=== PATIENT | female | born 1990 | race African-American/Black ===

== ENCOUNTER 2018-11-23 02:40 | Inpatient (IN) | payer OTHER ==
[2018-11-23] MEDS ORDERED: OXYTOCIN 20 UNITS in 0.9% NS 20 UNIT/1,000 ML INFUS.BAG IV ONE ×2 (04:39→09:00)
[2018-11-23] MEDS ORDERED: SUCCINYLCHOLINE CHLORIDE 200 MG/10 ML VIAL ONE (04:54)
[2018-11-23] MEDS ORDERED: PROPOFOL 20 ML ONE (04:55)
[2018-11-23] MEDS ORDERED: ceFAZolin SODIUM 1 GM VIAL ONE (05:17)
[2018-11-23] MEDS ORDERED: ceFAZolin 2 GRAM PREMIX BAG IVPB ONE (05:17)
[2018-11-23] MEDS ORDERED: DEXAMETHASONE SOD PHOSPHATE 4 MG/1 ML VIAL ONE (05:20)
[2018-11-23 05:35] LABS: VENOUS PC02 42.8 mmHg (41-51); VENOUS PH 7.25 (7.31-7.41)
[2018-11-23 05:37] LABS: ARTERIAL BLD GAS O2 SATURATION 35.6 % (95-98); ARTERIAL BLOOD GAS BASE EXCESS -9.9 meq/l (-2-2); ARTERIAL BLOOD GAS PCO2 62.6 mmHg (35-45)
[2018-11-23 05:43] LABS: ARTERIAL BLOOD GAS PO2 22.1 mmHg (80-105); ARTERIAL BLOOD GAS pH 7.14 (7.35-7.45)
[2018-11-23] MEDS ORDERED: DEXAMETHASONE SOD PHOSPHATE 4 MG/1 ML VIAL IVPUSH PRN (05:45)
[2018-11-23] MEDS ORDERED: ONDANSETRON 4 MG/2 ML VIAL IVPUSH PRN ×2 (05:45→05:55)
[2018-11-23] MEDS ORDERED: morphine SULFATE/PF 30 MG/30 ML *PCA* DISP.SYRIN PCA SCH (05:45)
[2018-11-23] MEDS ORDERED: METHYLERGONOVINE MALEATE 0.2 MG/1 ML AMP IM PRN (05:46)
--- NOTE | 2018-11-23 05:50 | OP ---
Operative Note - Note: Operative Date: 11/23/18 Pre-Operative Diagnosis: NRFHT, 2 prior C/S, Labor Operation: Repeat Low Transverse Findings: VFI, JANIYA position. No nuchal. No meconium. Weight pending. Apgars 8/9. Surgeon: Katherine Correia Automatic Glove Former: Michel Young Anesthesia: General Estimated Blood Loss (mls): 800
[2018-11-23] MEDS ORDERED: OXYTOCIN 20 UNITS in 0.9% NS 20 UNIT/1,000 ML INFUS.BAG IV SCH (06:00)
--- NOTE | 2018-11-23 06:00 | HP ---
Past Medical History - Admission Chief Complaint: Uterine contractions History of Present Illness: 27yo @ 36.2wks by stated JANIE who presents with painful irregular contractions, LOF. +FM No VB. Preg c/b: PNC in [place]- last visit in August 2017, no records available. 2 prior C/S History Source: Patient Limitations to Obtaining History: No Limitations - Past Medical History ...: 3 ...Para: 2 ...Term: 2 ...: 0 Heme/Onc: No: Anemia, B12 Deficiency, Bleeding Disorder, Cancer, Current Chemotherapy, Current Radiation Therapy, Hemochromatosis, Hypercoaguable State, Myeloproliferative Synd, Sickle Cell Disease, Sickle Cell Trait, Thrombocytopenia, Other Infectious Disease: No: AIDS, C-Diff, Herpes Zoster, HIV, MRSA, STD's, Tuberculosis, VREF, Other - Past Surgical History Past Surgical History: Yes: Hx Myomectomy: No Hx Transabdominal Cerclage: No - Smoking History Have you smoked in the past 12 months: No - Alcohol/Substance Use Hx Alcohol Use: No History of Substance Use: reports: None - Social History Usual Living Arrangement: Yes: Alone ADL: Independent History of Recent Travel: No Home Medications - Allergies Allergies/Adverse Reactions: Allergies Allergy/AdvReac Type Severity Reaction Status Date / Time No Known Allergies Allergy Verified 11/23/18 05:51 Physical Exam - Maternity Constitutional: Yes: Well Nourished Eyes: Yes: WNL HENT: Yes: WNL Neck: Yes: WNL - Abdominal Exam/OB Number of Fetuses: Single Presentation: Vertex Contractions: Yes Regularity: Irregular Intensity: Mod/Strong Monitor Mode: External Heart Rate Location: [facility] Category: II Accelerations: Uniform Decelerations: Variable - Vaginal Exam/OB Vaginal Bleediing: No Dilatation (cm): 9 Effacement (%): 100 Amniotic Membrane Status: Intact Nitrazine Test: Negative Presentation: Vertex/Position Station: +2 Assessment/Plan 27yo @ 36.2wks by stated JANIE who presents in labor Initially upon presentation 1cm dilated, given IV hydration with plan to reassess after hydration finished. Over the course of 2 hours, pt remained uncomfortable and upon nurse re-examination progressed to 9cm dilated and intact. With ensuing SROM, FHR rapidly progressed from Cat I to suspected Cat II although there was difficulty obtaining a consistent heart tracing. Hospitalist was called to evaluate the tracing while youth care professional MD was en route, hospitalist placed FSE which confirmed Cat II tracing with repeated deep variable decelerations and moderate variability, decision made to proceed to OR for stat under GETA given NRFHT. Anesthesia made aware and available. Primary MD arrived for Delivery in collaboration with hospitalist. All PN labs and urine toxicology ordered NICU present for delivery iTmothy Correia MD
[2018-11-23] MEDS ORDERED: GLYCOPYRROLATE 0.2 MG/1 ML VIAL ONE (06:06)
[2018-11-23] MEDS ORDERED: OXYTOCIN 10 UNITS/ML VIAL ONE (06:06)
[2018-11-23] MEDS ORDERED: VECURONIUM BROMIDE 10 MG VIAL ONE (06:06)
[2018-11-23] MEDS ORDERED: HYDROmorphone *PCA* 10MG/50ML DISP.SYRIN PCA ONE (06:23)
[2018-11-23] MEDS: HYDROmorphone *PCA* 10MG/50ML DISP.SYRIN PCA SCH (06:40)
--- NOTE | 2018-11-23 06:45 | OP ---
DATE OF OPERATION: 11/23/2018 PREOPERATIVE DIAGNOSIS: A 36-week , 2 prior sections, nonreassuring heart tracing, labor. POSTOPERATIVE DIAGNOSIS: A 36-week , 2 prior sections, nonreassuring heart tracing, labor. ANESTHESIA: General. SURGEON: Katherine Correia MD SOAKING ROOM OPERATOR: Michel Young MD FINDINGS: Viable female , JANIYA position. No nuchal. No meconium. Weight pending. Apgars 8, 9. Normal uterus. Normal bladder. ESTIMATED BLOOD LOSS: 800. IV FLUIDS: Per Anesthesia record. URINE OUTPUT: 100 mL of blood-tinged urine at the end of the procedure. COMPLICATIONS: None. CONDITION: Stable to recovery room. DESCRIPTION OF PROCEDURE: The patient was taken to the operating room. General anesthesia was administered secondary to concern of non-reassuring heart tracing. The abdomen was prepped and draped in sterile fashion. A Pfannenstiel incision was made through the prior incision and carried through to the underlying layer until the fascia was nicked in the midline. The fascia was extended laterally with the Villalobos scissors. Inferior aspect of the fascia was grasped with a Michael clamp, tented upwards, and the rectus muscles were dissected off bluntly and with the Villalobos scissors. Attention was then paid to the superior aspect, which was taken down in a similar fashion. Rectus muscles were then separately bluntly in the midline. Peritoneum was entered bluntly. Bladder blade was inserted. The vesiculo-uterine serosa was then grasped with a pickup, nicked in the midline, and extended laterally with the Metzenbaum scissors. A bladder flap was then created digitally. The bladder blade at that reinserted. The uterus was then incised in a low transverse fashion with a scalpel. Clear amniotic fluid was noted. The head was delivered atraumatically after the shoulders. The cord was clamped and cut. The was handed off to the awaiting NICU staff. The placenta was delivered spontaneously. Cord gases were obtained. The uterus was cleared of all clot and debris. The uterus could not be exteriorized due to size. The hysterotomy was closed in a single imbricating layer with a single Biosyn. The right lateral edge was reinforced with a 0 Vicryl for hemostasis. Gutters were cleared of clot and debris. Hemostasis was noted. The fascia was then closed with a 0 Vicryl. Subcutaneous tissue was closed with 2-0 plain. Skin was closed with aleyda. Sponge, lap, and needle counts were correct x3. The patient was given Ancef at the start of the procedure. She was taken from the operating room to the recovery area in stable condition. MD LUX [id number] MTDD
[2018-11-23 07:27] LABS: BASO % 0.2 % (0-2.0); HEMATOCRIT 33.3 % (32.4-45.2); HEMOGLOBIN 11.1 GM/dL (10.7-15.3); LYMPH % 3.5 % (8-40); MCH 26.7 pg (25.7-33.7); MCHC 33.3 g/dl (32.0-36.0); MEAN CELL VOLUME 80.3 fl (80-96); MEAN PLT VOLUME 8.3 fl (7.5-11.1); MONO % 1.9 % (3.8-10.2); NEUT % 94.4 % (42.8-82.8); PLATELET COUNT 310 K/MM3 (134-434); RBC 4.15 M/mm3 (3.60-5.2); WHITE BLOOD COUNT 20.1 K/mm3 (4.0-10.0)
[2018-11-23 07:55] LABS: ANION GAP 8 MMOL/L (8-16); BLOOD UREA NITROGEN 4 mg/dL (7-18); CALCIUM 7.9 mg/dL (8.5-10.1); CHLORIDE 107 mmol/L (98-107); CO2 21 mmol/L (21-32); CREATININE 0.5 mg/dL (0.55-1.3); GLUCOSE,RANDOM 123 mg/dL (74-106); POTASSIUM 3.7 mmol/L (3.5-5.1); SODIUM 136 mmol/L (136-145)
[2018-11-23 08:03] VITALS: BMI 27.4
[2018-11-23 08:12] LABS: INR 0.99 (0.83-1.09); PROTHROMBIN TIME (PATIENT) 11.7 SEC (9.7-13.0)
[2018-11-23 08:15] LABS: ACTIVATED PTT 28.1 SECONDS (25.2-36.5)
[2018-11-23 08:51] LABS: COCAINE, UR NEGATIVE ng/ml (CUTOFF=300); METHADONE, UR NEGATIVE ng/ml (CUTOFF=300); OPIATES, URI NEGATIVE ng/ml (CUTOFF=300); PHENCYCLIDINE,URINE NEGATIVE ng/ml (CUTOFF=25); URINE AMPHETAMINES NEGATIVE ng/ml (CUTOFF=500); URINE BARBITURATES NEGATIVE ng/ml (CUTOFF=200); URINE BENZODIAZEPINES NEGATIVE ng/ml (CUTOFF=200)
[2018-11-23] MEDS: PRENATAL VITAMINS W/ FOLIC ACID TABLET (FP) PO SCH (10:00)
--- NOTE | 2018-11-23 13:38 | PN ---
Progress Note (short form) - Note Progress Note: I was called by the RN to assist in evaluation of this patient due to OB emergency. The pt is a 27yo P2 without care records who presented to L& D with c/o labor and leaking fluid. She reported having a at about 36 2/7wks with h/o prior C/S x 2. I arrived at 4:40am to find the pt 1ocm dilated with head at +1/+2 station. The FHR was difficult to picker operator and appeared to be at about 100bpm. However, I was uncertain if the tracing reflected a or maternal heart rate. The pt was asked to push but the delivery was not imminent. FSE was applied at 4:43am and the fetus was noted to have recurrent variable decelerations from 130bpm to 50bpm. An emergency C/S was called and the pt was transferred to the OR. Dr. Correia came in when the pt was being transferred to the OR. An emergency C/S was performed.
[2018-11-23 13:52] LABS: PLATELET ESTIMATE ADEQUATE
[2018-11-23] MEDS ORDERED: TUBERCULIN PPD 5 TU/0.1ML SYRINGE (IN PATIENT USE ONLY) ID ONE (16:45)
[2018-11-24] MEDS ORDERED: PCA PUMP KEY 1 EACH EACH ONE ×2 (00:09→06:50)
[2018-11-24] MEDS ORDERED: BISACODYL 10 MG SUPP.RECT RC PRN (05:46)
[2018-11-24 06:37] LABS: HBsAG SCREEN Negative (Negative)
[2018-11-24] MEDS: SIMETHICONE 80 MG TAB.CHEW (FP) PO PRN ×2 (07:02→16:36)
[2018-11-24] MEDS: oxyCODONE HCL 5 MG TABLET PO PRN ×2 (07:02→16:36)
[2018-11-24] MEDS: IBUPROFEN 600 MG TABLET (FP) PO PRN ×2 (07:04→16:37)
[2018-11-24 07:15] LABS: BASO % 0.4 % (0-2.0); HEMATOCRIT 33.5 % (32.4-45.2); HEMOGLOBIN 10.9 GM/dL (10.7-15.3); LYMPH % 13.5 % (8-40); MCH 26.1 pg (25.7-33.7); MCHC 32.5 g/dl (32.0-36.0); MEAN CELL VOLUME 80.2 fl (80-96); MEAN PLT VOLUME 7.9 fl (7.5-11.1); MONO % 5.4 % (3.8-10.2); NEUT % 80.7 % (42.8-82.8); PLATELET COUNT 317 K/MM3 (134-434); RBC 4.18 M/mm3 (3.60-5.2); RDW 13.9 % (11.6-15.6)
--- NOTE | 2018-11-24 08:36 | PN ---
Post Progress Note Post Day: 1 Type of Delivery: Repeat C/S Vital Signs: Vital Signs Temperature 98.9 F 11/24/18 06:00 Pulse Rate 89 11/24/18 06:00 Respiratory Rate 18 11/24/18 06:00 Blood Pressure 126/70 11/24/18 06:00 O2 Sat by Pulse Oximetry (%) 100 11/23/18 09:00 Uterus: Yes: Fundus below umbilicus Incision: Yes: Dressing dry and intact, Shanthi intact Abdomen/GI: Yes: Abdomen soft Lochia, amount: Small Extremities: Yes: Calves non-tender Activity: Ambulating (Pain controlled with VALIDATION SOFTWARE FACILITATOR. No flatus or BM yet. No fevers/ chills.) - Labs Labs: CBC WBC 16.0 K/mm3 (4.0-10.0) H 11/24/18 06:45 RBC 4.18 M/mm3 (3.60-5.2) 11/24/18 06:45 Hgb 10.9 GM/dL (10.7-15.3) 11/24/18 06:45 Hct 33.5 % (32.4-45.2) 11/24/18 06:45 MCV 80.2 fl (80-96) 11/24/18 06:45 MCH 26.1 pg (25.7-33.7) 11/24/18 06:45 MCHC 32.5 g/dl (32.0-36.0) 11/24/18 06:45 RDW 13.9 % (11.6-15.6) 11/24/18 06:45 Plt Count 317 K/MM3 (134-434) 11/24/18 06:45 MPV 7.9 fl (7.5-11.1) 11/24/18 06:45 Absolute Neuts (auto) 12.9 K/mm3 (1.5-8.0) H 11/24/18 06:45 Total Counted 100 11/23/18 06:50 Neutrophils % 80.7 % (42.8-82.8) 11/24/18 06:45 Neutrophils % (Manual) 82.0 % (42.8-82.8) 11/23/18 06:50 Band Neutrophils % 10.0 % 11/23/18 06:50 Lymphocytes % 13.5 % (8-40) D 11/24/18 06:45 Lymphocytes % (Manual) 5.0 % (8-40) L 11/23/18 06:50 Monocytes % 5.4 % (3.8-10.2) D 11/24/18 06:45 Eosinophils % 0.0 % (0-4.5) 11/24/18 06:45 Basophils % 0.4 % (0-2.0) 11/24/18 06:45 Nucleated RBC % 0 % (0-0) 11/24/18 06:45 Platelet Estimate Adequate 11/23/18 06:50 Platelet Comment Giant platelets 11/23/18 06:50 Problem List - Problems (1) S/P Code(s): Z98.891 - HISTORY OF UTERINE SCAR FROM PREVIOUS SURGERY Assessment/Plan 27yo s/p RLTCS, POD#1 D/C VALIDATION SOFTWARE FACILITATOR, transition to po meds Labs reviewed; CBC from AM still pending; PN labs sent reviewed, some still pending. Utox negative. Routine PP care OOB, ambulate Anticipate d/c to home by POD#4 Timothy Correia MD
[2018-11-24] MEDS: PRENATAL VITAMINS W/ FOLIC ACID TABLET (FP) PO SCH (10:00)
[2018-11-25] MEDS: SIMETHICONE 80 MG TAB.CHEW (FP) PO PRN ×3 (01:14→22:19)
[2018-11-25] MEDS: IBUPROFEN 600 MG TABLET (FP) PO PRN ×3 (01:14→22:16)
[2018-11-25] MEDS: oxyCODONE HCL 5 MG TABLET PO PRN ×3 (01:15→22:17)
[2018-11-25] MEDS ORDERED: diphenhydrAMINE HCL 25 MG CAPSULE (FP) PO PRN (08:36)
[2018-11-25] MEDS: PRENATAL VITAMINS W/ FOLIC ACID TABLET (FP) PO SCH (10:14)
--- NOTE | 2018-11-25 10:55 | PN ---
Post Progress Note Post Day: 2 Type of Delivery: Repeat C/S Vital Signs: Vital Signs Temperature 98.3 F 11/25/18 09:33 Pulse Rate 74 11/25/18 09:33 Respiratory Rate 20 11/25/18 09:33 Blood Pressure 109/59 L 11/25/18 09:33 O2 Sat by Pulse Oximetry (%) 100 11/23/18 09:00 Uterus: Yes: Fundus below umbilicus Incision: Yes: Dressing dry and intact, Shanthi intact Abdomen/GI: Yes: Abdomen soft Lochia: Yes: Rubra Lochia, amount: Small Extremities: Yes: Calves non-tender Activity: Ambulating (Pain controlled. Patient self discontinued IV.) - Labs Labs: CBC WBC 16.0 K/mm3 (4.0-10.0) H 11/24/18 06:45 RBC 4.18 M/mm3 (3.60-5.2) 11/24/18 06:45 Hgb 10.9 GM/dL (10.7-15.3) 11/24/18 06:45 Hct 33.5 % (32.4-45.2) 11/24/18 06:45 MCV 80.2 fl (80-96) 11/24/18 06:45 MCH 26.1 pg (25.7-33.7) 11/24/18 06:45 MCHC 32.5 g/dl (32.0-36.0) 11/24/18 06:45 RDW 13.9 % (11.6-15.6) 11/24/18 06:45 Plt Count 317 K/MM3 (134-434) 11/24/18 06:45 MPV 7.9 fl (7.5-11.1) 11/24/18 06:45 Absolute Neuts (auto) 12.9 K/mm3 (1.5-8.0) H 11/24/18 06:45 Total Counted 100 11/23/18 06:50 Neutrophils % 80.7 % (42.8-82.8) 11/24/18 06:45 Neutrophils % (Manual) 82.0 % (42.8-82.8) 11/23/18 06:50 Band Neutrophils % 10.0 % 11/23/18 06:50 Lymphocytes % 13.5 % (8-40) D 11/24/18 06:45 Lymphocytes % (Manual) 5.0 % (8-40) L 11/23/18 06:50 Monocytes % 5.4 % (3.8-10.2) D 11/24/18 06:45 Eosinophils % 0.0 % (0-4.5) 11/24/18 06:45 Basophils % 0.4 % (0-2.0) 11/24/18 06:45 Nucleated RBC % 0 % (0-0) 11/24/18 06:45 Platelet Estimate Adequate 11/23/18 06:50 Platelet Comment Giant platelets 11/23/18 06:50 Other Findings, Remarks: Tolerating po. Pain controlled. No N/V. +Flatus. Problem List - Problems (1) S/P Code(s): Z98.891 - HISTORY OF UTERINE SCAR FROM PREVIOUS SURGERY Assessment/Plan 27yo s/p RLTCS, POD#2 D/C QUALITY CONTROL SPECIALIST, transition to po meds Labs reviewed Routine PP care OOB, ambulate Anticipate d/c to home by POD#4 Timothy Correia MD
[2018-11-25] MEDS: HYDROmorphone *PCA* 10MG/50ML DISP.SYRIN PCA SCH (11:11)
[2018-11-25 13:16] LABS: RUBELLA ANTIBODY,IGM <20.0 AU/mL (0.0-19.9); RUBELLA IgG ANTIBODY 1.82 index (Immune >0.99)
[2018-11-26] MEDS: SIMETHICONE 80 MG TAB.CHEW (FP) PO PRN ×2 (06:42→16:50)
[2018-11-26] MEDS: oxyCODONE HCL 5 MG TABLET PO PRN ×3 (06:42→18:46)
[2018-11-26] MEDS: IBUPROFEN 600 MG TABLET (FP) PO PRN ×2 (06:43→16:50)
--- NOTE | 2018-11-26 08:14 | DS ---
Physical Exam-SENIOR PRINCIPAL SOFTWARE ENGINEER Vital Signs: Vital Signs Temperature 98.8 F 11/25/18 22:00 Pulse Rate 68 11/25/18 22:00 Respiratory Rate 18 11/25/18 22:00 Blood Pressure 117/65 11/25/18 22:00 O2 Sat by Pulse Oximetry (%) 100 11/23/18 09:00 Constitutional: Yes: Well Nourished Eyes: Yes: Conjunctiva Clear HENT: Yes: Atraumatic Neck: Yes: Supple Cardiovascular: Yes: Regular Rate and Rhythm Respiratory: Yes: Regular Gastrointestinal: Yes: Normal Bowel Sounds Vaginal Exam: Yes: Normal Cervix: Yes: Normal Uterus: Yes: Normal Wound/Incision: Yes: Well Approximated Neurological: Yes: Alert, Oriented Psychiatric: Yes: Alert, Oriented Labs: CBC, BMP 11/24/18 06:45 11/23/18 06:50 Delivery - Delivery Type of Anesthesia: General EBL (cc): 800 Delivery, Single - Stages of Labor Date 1st Stage Initiatied: 11/22/18 Time 1st Stage Initiated: 21:00 Date 2nd Stage Initiated: 11/23/18 Time 2nd Stage Initiated: 04:40 Date of Delivery: 11/23/18 Time of Delivery: 05:09 Time Placenta Delivered: 05:10 - Condition of Infant Instructional Systems Design Consultant/Substation Designer Present: Yes Name: Filipe Hinkle Gender: Female Weight: 4 lb 12 oz Total Hours ROM (Hrs/Mins): 0hr 44min - 1 Minute Total Score: 8 5 Minutes Total Score: 9 - Feeding Plan Initial Plan: Elected not to breastfeed exclusively throughout hospitalization Discharge Summary Reason For Visit: LABOR Current Active Problems S/P (Acute) Procedures: Principal: delivery Hospital Course: Routine post op care Condition: Good - Instructions Diet, Activity, Other Instructions: Regular diet No driving, no lifting x 4 weeks Referrals: Fabrice Henriquez MD [Staff Physician] - Disposition: HOME
[2018-11-26] MEDS: PRENATAL VITAMINS W/ FOLIC ACID TABLET (FP) PO SCH (09:55)
[2018-11-26] MEDS: ACETAMINOPHEN 325 MG TABLET (FP) PO PRN (18:46)
[2018-11-27 00:03] VITALS: TEMP 98.3
[2018-11-27] MEDS: SIMETHICONE 80 MG TAB.CHEW (FP) PO PRN ×2 (08:28→17:44)
[2018-11-27] MEDS: IBUPROFEN 600 MG TABLET (FP) PO PRN ×2 (08:28→17:44)
[2018-11-27] MEDS: ACETAMINOPHEN 325 MG TABLET (FP) PO PRN ×2 (08:29→17:45)
[2018-11-27 09:14] VITALS: BP 135/50; PULSE 59
[2018-11-27] MEDS: PRENATAL VITAMINS W/ FOLIC ACID TABLET (FP) PO SCH (10:02)
--- NOTE | 2018-12-03 15:34 | PATH ---
Surgical Pathology Report Patient Name: SOLEDAD KOCH [facility]. Rec. #: [id number] /Age/Gender: 1990 (Age: 27) / F Account: [id number] Location: [facility] OBS/MACHINE FITTER Taken: 11/23/2018 Received: 11/25/2018 Reported: 12/03/2018 Physicians: Katherine Correia Specimen(s) Received PLACENTA Clinical History 08/24 and 09/27 Final Diagnosis PLACENTA, DELIVERY: FOCALLY DISRUPTED THIRD TRIMESTER PLACENTA WITH ACUTE CHORIOAMNIONITIS, FOCAL VILLOUS IMMATURITY, INTERVILLOUS FIBRIN DEPOSITION, AND THREE VESSEL UMBILICAL CORD. Electronically Signed Main Fairchild M.D. Gross Description The specimen is received fresh labeled placenta and is a 485 gram, 17.5 x 15.5 x 2.8 cm. placenta with attached membranes and umbilical cord. The attached membranes are cochran, translucent with focal opacities and insert marginally. The umbilical cord measures 19 cm. in length and averages 1 cm. in diameter. The cord inserts centrally. No true knots or strictures are identified. Cut surface of the umbilical cord reveals 3 vessels. The surface is islas-blue with minimal fibrin deposition and appropriate caliber vessels. The maternal surface is red-brown with focal defects. Sectioning reveals red-brown, spongy parenchyma. No lesions are identified. Government Relations Analyst sections are submitted in three cassettes as follows: 1- membrane rolls and umbilical cord; 2-3- full thickness sections of placenta. /12/02/2018 saudi/12/02/2018
== END 2018-11-27 18:00 | disposition home or self-care (01) | DRG 540 ==
LOC: JDEL 02:40 → JLDR 04:30 → J3W 09:25
PROVIDERS: ADMIT Obstetrics & Gynecology; ATTEND Obstetrics & Gynecology
PROC: 10D00Z1 Extraction of Products of Conception, Low, Open Approach (ICD-10-PCS; principal; 2018-11-23)
DX: O76 Abnormality in fetal heart rate and rhythm complicating labor and delivery (principal); Z3A.36 36 weeks gestation of pregnancy; Z37.0 Single live birth
CPT/HCPCS: 36415; 36600; 80048; 80307; 82803; 85025; 85610; 85730; 86593; 86762; 86850; 86900; 86901; 87340; 87389; 88307-TC